=== PATIENT | male | born 1940 | race Caucasian/White ===

== ENCOUNTER 2024-04-06 11:35 | Emergency (ER) | payer MEDICARE, SELFPAY ==
[2024-04-06 11:40] VITALS: BP 143/65; PULSE 75; RESP 16; O2SAT 98; BMI 24.1
== END 2024-04-06 14:09 | disposition left against medical advice (07) ==
PROVIDERS: Emergency Provider Student in an Organized Health Care Education/Training Program; PCP Naturopath
DX: Z53.21 Procedure and treatment not carried out due to patient leaving prior to being seen by health care provider (principal)
CPT/HCPCS: 99281

== ENCOUNTER 2025-04-27 12:31 | Emergency (ER) | payer OTHER, SELFPAY ==
[2025-04-27] VITALS (7 sets, daily range): BP systolic 142–193; BP diastolic 65–84; PULSE 81–91; RESP 18; TEMP 36.8; O2SAT 95–97; BMI 25.2
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
== END 2025-04-27 14:58 | disposition home or self-care (01) ==
PROVIDERS: Emergency Provider Emergency Medicine; PCP Naturopath
DX: S50.812A Abrasion of left forearm, initial encounter (principal); V43.52XA Car driver injured in collision with other type car in traffic accident, initial encounter; Y93.9 Activity, unspecified; Y92.410 Unspecified street and highway as the place of occurrence of the external cause
CPT/HCPCS: 99281